=== PATIENT | male | born 1960 | race Caucasian/White ===

== ENCOUNTER 2020-02-13 22:15 | Emergency (ER) | payer OTHER ==
[~2020-02-13] VITALS: Ht 180.3 cm; Wt 90.0 kg
[2020-02-13] MEDS ORDERED: TETanus/Pertussis (Acell)/Diphther VAC/PF (Tdap-Adult) 0.5ml syringe IMVAC ONE (22:30)
[2020-02-13] MEDS ORDERED: LIDOcaine 1% W/epiNEPHrine 1:200,000 10ml vial IJ ONE (22:30)
--- NOTE | 2020-02-13 22:50 | NUR ---
Contacted Radha..existing case #[id number]
[2020-02-13 23:52] VITALS: BP 120/81
== END 2020-02-13 23:53 | disposition home or self-care (01) ==
LOC: ER 22:16
DX: S51.812A Laceration without foreign body of left forearm, initial encounter (principal); S91.311A Laceration without foreign body, right foot, initial encounter; W25.XXXA Contact with sharp glass, initial encounter; Y93.89 Activity, other specified; Y92.89 Other specified places as the place of occurrence of the external cause; Y99.9 Unspecified external cause status
CPT/HCPCS: 12002; 90471; 90715; 99283; 99284